=== PATIENT | male | born 1965 | race Caucasian/White ===

== ENCOUNTER 2018-09-22 14:03 | Emergency (ER) | payer BC ==
[~2018-09-22] VITALS: Ht 180.3 cm; Wt 109.1 kg
[2018-09-22 14:14] VITALS: Ht 180.3 cm; Wt 109.1 kg
[2018-09-22] MEDS ORDERED: PAXIL20 MG PO (14:15)
[2018-09-22] MEDS ORDERED: TYLENOL W/CODEI1 TAB PO (15:37)
[2018-09-22] MEDS ORDERED: MUPIROCIN22 GM TOPICAL (15:37)
[2018-09-22 15:44] VITALS: BP 148/93
== END 2018-09-22 15:45 | disposition home or self-care (01) ==
LOC: D.ER 14:03
DX: S61.412A Laceration without foreign body of left hand, initial encounter (principal); W25.XXXA Contact with sharp glass, initial encounter; Y93.89 Activity, other specified; Y92.019 Unspecified place in single-family (private) house as the place of occurrence of the external cause